=== PATIENT | female | born 1975 | race Two or more races ===

== ENCOUNTER 2020-03-15 12:51 | Emergency (ER) | payer MEDICAID, OTHER, SELFPAY ==
[~2020-03-15] VITALS: Ht 157.5 cm; Wt 95.0 kg
--- NOTE | 2020-03-15 13:10 | NUR ---
PT HAS ABD SURGICAL INCISION FROM 03/2019 THAT HAS TAKEN THE LAST YEAR TO HEAL. SMALL PART OPENED UP AGAIN TODAY WHILE PT WAS MOVING LUGGAGE AROUND. PT BLE BELOW KNEE AMPUTATION. PT WC BOUND. PT UNCONTROLLED DM2. PT CONNECTED TO MONITORING. CALL LIGHT IN REACH.
[2020-03-15 13:13] VITALS: BP 139/78
[2020-03-15] MEDS ORDERED: SODIUM CHLORIDE 0.9% 1,000ML IVBOLUS ONE (13:30)
--- NOTE | 2020-03-15 13:56 | NUR ---
LABS DRAWN FROM FIRST PIV PLACEMENT ATTEMPT. SECOND PIV PLACEMENT ATTEMPT UNSUCCESSFUL. PT STATES "I KNOW HOW TO BRING MY SUGARS DOWN AT HOME". PT REFUSED PIV AND PIV FLUIDS. PT STATES SHE WANTS TO GO HOME. PROVIDER NOTIFIED. PT SIGNED AMA PAPERWORK. PT WILL CALL BACK TO CHECK LAB RESULTS. WOUND CARE PROVIDED BY PRODUCT MARKETING CONSULTANT AND SUPPLIES PROVIDED. PT TRANSFERRED TO OWN W/O INCIDENCE.
[2020-03-15 14:05] LABS: BASOPHILS % (AUTO) 1 % (0-1); EOSINOPHILS % (AUTO) 1 % (1-7); LYMPHOCYTES % (AUTO) 17 % (22-44); MEAN CORPUSCULAR HEMOGLOBIN 24.7 pg (27.0-34.8); MEAN CORPUSCULAR HGB CONC 32.1 g/dL (32.4-35.8); MEAN PLATELET VOLUME 8.4 fL (7.4-10.4); MONOCYTES % (AUTO) 4 % (2-9); NEUTROPHILS % (AUTO) 77 % (42-75); PLATELET COUNT 323 x10^3/uL (130-400); RED BLOOD COUNT 5.21 x10^6/uL (3.82-5.3); RED CELL DISTRIBUTION WIDTH 15.3 % (9.6-15.2)
[2020-03-15 14:08] LABS: MD NO
[2020-03-15 14:17] LABS: ANION GAP 6 mmol/L (5-15); CALCIUM 8.8 mg/dL (8.5-10.1); CHLORIDE 99 mmol/L (98-107); CREATININE 1.05 mg/dL (0.55-1.02)
--- NOTE | 2020-03-15 14:34 | NUR ---
CARDIAC CARE UNIT NURSE: RECEIVED CALL FROM LAB, BLOOD GLUCOSE [phone]. ALICIA OSEI NOTIFIED. PT HAD LEFT AMA.
== END 2020-03-15 14:01 | disposition home or self-care (01) ==
LOC: ED 13:54
DX: T81.30XD Disruption of wound, unspecified, subsequent encounter (principal); E11.65 Type 2 diabetes mellitus with hyperglycemia; Z48.01 Encounter for change or removal of surgical wound dressing; Z90.710 Acquired absence of both cervix and uterus; Y83.8 Other surgical procedures as the cause of abnormal reaction of the patient, or of later complication, without mention of misadventure at the time of the procedure
CPT/HCPCS: 36415; 80048; 82040; 82962; 85025; 87070; 87147; 87205; 99283

== ENCOUNTER 2020-04-24 19:13 | Emergency (ER) | payer MEDICAID ==
[~2020-04-24] VITALS: Ht 129.5 cm; Wt 100.0 kg
--- NOTE | 2020-04-24 19:39 | NUR ---
Patient presents to ER c/o an open wound in the umbilical area. Patient had a hysterectomy last year in March. Patient states the incision never healed properly due to her DM. Now patient has approx 1 inch of the incision area which is open and oozing. Patient c/o pain with it. Patient is in NAD. Respirations even and unlabored.
--- NOTE | 2020-04-24 19:45 | NUR ---
Urine collected and sent to lab.
[2020-04-24 20:58] LABS: BASOPHILS % (AUTO) 2 % (0-1); EOSINOPHILS % (AUTO) 2 % (1-7); LYMPHOCYTES % (AUTO) 22 % (22-44); MEAN CORPUSCULAR HGB CONC 32.3 g/dL (32.4-35.8); MEAN PLATELET VOLUME 8.3 fL (7.4-10.4); MONOCYTES % (AUTO) 5 % (2-9); NEUTROPHILS % (AUTO) 70 % (42-75); PLATELET COUNT 308 x10^3/uL (130-400); RED BLOOD COUNT 5.22 x10^6/uL (3.82-5.3); RED CELL DISTRIBUTION WIDTH 15.8 % (9.6-15.2)
[2020-04-24 21:03] LABS: MD NO
[2020-04-24 21:03] LABS: MICROSCOPIC NOT IND
[2020-04-24 21:10] LABS: ALANINE AMINOTRANSFERASE 24 U/L (12-78); ALBUMIN 2.8 g/dL (3.4-5.0); ANION GAP 7 mmol/L (5-15); CALCIUM 8.4 mg/dL (8.5-10.1); CHLORIDE 94 mmol/L (98-107); CREATININE 1.03 mg/dL (0.55-1.02)
[2020-04-24 21:13] LABS: ALKALINE PHOSPHATASE 142 U/L (45-117); BILIRUBIN,TOTAL 0.2 mg/dL (0.2-1.0); TOTAL PROTEIN 7.4 g/dL (6.4-8.2)
[2020-04-24] MEDS ORDERED: INSULIN SINGLE DOSE, ER ONE (21:40)
[2020-04-24] MEDS ORDERED: FLUCONAZOLE 100 MG TABLET ONE ×2 (21:40→21:50)
[2020-04-24 21:53] VITALS: BP 147/74
--- NOTE | 2020-04-24 21:54 | NUR ---
Meds admin per apr. Awaiting patient's med list from home for d/c instructions.
[2020-04-24] MEDS ORDERED: INSULIN REGULAR 100 UNITS/ML, 3ML VIAL SQ-INSULIN ONE (22:00)
[2020-04-24] MEDS ORDERED: FLUCONAZOLE 100 MG TABLET PO ONE (22:00)
--- NOTE | 2020-04-24 22:52 | NUR ---
Discharge instructions given. All questions and concerns addressed. Patient in her electric wheelchair. Belongings with patient.
== END 2020-04-24 22:54 | disposition home or self-care (01) ==
LOC: ED 21:26
DX: T81.31XA Disruption of external operation (surgical) wound, not elsewhere classified, initial encounter (principal); E11.65 Type 2 diabetes mellitus with hyperglycemia; B37.3 Candidiasis of vulva and vagina; I11.9 Hypertensive heart disease without heart failure; E78.5 Hyperlipidemia, unspecified; Z90.710 Acquired absence of both cervix and uterus; Z89.612 Acquired absence of left leg above knee; Z89.611 Acquired absence of right leg above knee
CPT/HCPCS: 36415; 80053; 81003; 85025; 99283; J1815

== ENCOUNTER 2020-04-27 13:25 | Outpatient (CLI) | payer MEDICAID | END 2020-04-27 23:59 | disposition home or self-care (01) | LOC: WOUND 13:25 | PROVIDERS: ATTEND Internal Medicine | DX: T81.32XA Disruption of internal operation (surgical) wound, not elsewhere classified, initial encounter (principal); E11.65 Type 2 diabetes mellitus with hyperglycemia; C57.4 Malignant neoplasm of uterine adnexa, unspecified; E66.01 Morbid (severe) obesity due to excess calories; E44.0 Moderate protein-calorie malnutrition; F31.9 Bipolar disorder, unspecified; I11.9 Hypertensive heart disease without heart failure; F41.9 Anxiety disorder, unspecified; Z87.891 Personal history of nicotine dependence; Z89.612 Acquired absence of left leg above knee; Z89.611 Acquired absence of right leg above knee; Y83.8 Other surgical procedures as the cause of abnormal reaction of the patient, or of later complication, without mention of misadventure at the time of the procedure; Y92.238 Other place in hospital as the place of occurrence of the external cause | CPT/HCPCS: 97597; 99215 ==

== ENCOUNTER 2020-06-16 17:10 | Inpatient (IN) | payer MEDICAID ==
[~2020-06-16] VITALS: Ht 129.5 cm; Wt 98.3 kg
[2020-06-16] MEDS ORDERED: ASPIRIN 81 MG TABLET CHEW ONE (18:12)
--- NOTE | 2020-06-16 18:15 | NUR ---
THIS IS A 45 YO F W/ C/O SHARP UPPR BILAT CP STARTING AT 2200 LAST NIGHT. PT REPORTS RELAPSED LAST NIGHT BY SMOKING COCAINE, WAS 7 MONTHS CLEAN. PT REPORTS HX OF "HEART PROBLEMS" R/T PAST DRUG USE. PT MEDICATED PER EMAR. PT RESTING ON [email or web address] W/ CALL LIGHT IN REACH AND SIDE RAILS UPX2. RESP EVEN AND UNLABORED, KENAN.
[2020-06-16] MEDS ORDERED: SODIUM CHLORIDE FLUSH 10ML SYR IVF ONE (18:30)
[2020-06-16] MEDS ORDERED: ASPIRIN 81 MG TABLET CHEW PO ONE (18:30)
[2020-06-16 18:34] LABS: BASOPHILS % (AUTO) 1 % (0-1); EOSINOPHILS % (AUTO) 1 % (1-7); LYMPHOCYTES % (AUTO) 17 % (22-44); MD NO; MEAN CORPUSCULAR HEMOGLOBIN 24.3 pg (27.0-34.8); MEAN CORPUSCULAR HGB CONC 31.9 g/dL (32.4-35.8); MEAN PLATELET VOLUME 8.1 fL (7.4-10.4); MONOCYTES % (AUTO) 8 % (2-9); NEUTROPHILS % (AUTO) 74 % (42-75); PLATELET COUNT 372 x10^3/uL (130-400); RED BLOOD COUNT 5.82 x10^6/uL (3.82-5.3); RED CELL DISTRIBUTION WIDTH 16.1 % (9.6-15.2)
[2020-06-16 18:44] LABS: ALBUMIN 3.2 g/dL (3.4-5.0); ANION GAP 8 mmol/L (5-15); CALCIUM 9.2 mg/dL (8.5-10.1); CHLORIDE 94 mmol/L (98-107); CREATININE 1.29 mg/dL (0.55-1.02)
--- NOTE | 2020-06-16 18:51 | NUR ---
REPORT TO RANDOLPH RN, PT RESTING ON [employer] W/ CALL LIGHT IN REACH AND SIDE RAILS UPX2. RESP EVEN AND UNLABORED, GIOVANY.
[2020-06-16] MEDS ORDERED: INSULIN REGULAR 100 UNITS/ML, 3ML VIAL SQ-INSULIN ONE (19:00)
[2020-06-16] MEDS ORDERED: SODIUM CHLORIDE 0.9% 1,000ML IVBOLUS ONE (19:00)
[2020-06-16] MEDS ORDERED: HEPARIN 5,000 UNITS/ML, 1ML IV ONE (20:30)
[2020-06-16] MEDS ORDERED: ACETAMINOPHEN 325 MG TABLET PO PRN (20:30)
[2020-06-16] MEDS ORDERED: ENALAPRILAT 1.25 MG/ML, 2ML IVPush PRN (20:30)
[2020-06-16] MEDS ORDERED: ONDANSETRON 2MG/ML, 2ML IVPush PRN (20:30)
[2020-06-16] MEDS ORDERED: hydrALAzine 20 MG/ML, 1ML IVPush PRN (20:30)
[2020-06-16] MEDS ORDERED: ONDANSETRON ODT 4 MG PO PRN (20:30)
[2020-06-16] MEDS ORDERED: HEPARIN 5,000 UNITS/ML, 1ML ONE (20:33)
[2020-06-16] MEDS ORDERED: INSULIN LISPRO 100 UNITS/ML, PEN ONE (20:33)
[2020-06-16] MEDS ORDERED: HEPARIN 25,000 UNITS/250ML PMX 250 ML ONE (20:37)
[2020-06-16] MEDS: HEPARIN 25,000 UNITS/250ML PMX 250 ML IV PRN (20:51)
--- NOTE | 2020-06-16 20:57 | NUR ---
REPORT FROM RANDOLPH RN [employer] DIRECTOR HELPED VERIFY INSULIN/HEPARIN-BOTH ADMINISTERED PER EMAR
[2020-06-16] MEDS ORDERED: SODIUM CHLORIDE 0.9%, 500ML IVBOLUS ONE (21:00)
[2020-06-16] MEDS ORDERED: METOPROLOL TARTRATE 25 MG TAB PO ONE (21:00)
[2020-06-16] MEDS: ZOLPIDEM 5MG TABLET PO PRN (23:47)
[2020-06-16] MEDS: INSULIN LISPRO 100 UNITS/ML, PEN SQ-INSULIN SCH (23:47)
[2020-06-16] MEDS: morphine SULFATE 10 MG/ML, 1ML IVPush PRN (23:47)
[2020-06-16] MEDS: INSULIN GLARGINE 100 UNITS/ML, PEN SQ-INSULIN SCH (23:47)
[2020-06-17 00:51] VITALS: BP 105/68
[2020-06-17] MEDS ORDERED: SODIUM CHLORIDE 0.9% 1,000ML IVBOLUS ONE (01:30)
[2020-06-17 02:29] LABS: BASOPHILS % (AUTO) 1 % (0-1); EOSINOPHILS % (AUTO) 2 % (1-7); LYMPHOCYTES % (AUTO) 26 % (22-44); MEAN CORPUSCULAR HEMOGLOBIN 24.3 pg (27.0-34.8); MEAN CORPUSCULAR HGB CONC 32.6 g/dL (32.4-35.8); MEAN PLATELET VOLUME 7.8 fL (7.4-10.4); MONOCYTES % (AUTO) 6 % (2-9); NEUTROPHILS % (AUTO) 65 % (42-75); PLATELET COUNT 290 x10^3/uL (130-400); RED BLOOD COUNT 5.13 x10^6/uL (3.82-5.3); RED CELL DISTRIBUTION WIDTH 15.6 % (9.6-15.2)
[2020-06-17 02:30] LABS: MD NO
[2020-06-17 02:41] LABS: ANION GAP 8 mmol/L (5-15); CALCIUM 8.2 mg/dL (8.5-10.1); CHLORIDE 103 mmol/L (98-107); CHOLESTEROL, TOTAL 144 mg/dL (140-239); CREATININE 1.01 mg/dL (0.55-1.02); TRIGLYCERIDES 212 mg/dL (50-200); VLDL CHOLESTEROL 42 mg/dL (0-25)
[2020-06-17 02:44] LABS: CHOL/HDL RATIO 5.3; HDL CHOL % 19 % (28-40); HDL CHOLESTEROL (DIRECT) 27 mg/dL (40-60); LDL CHOLESTEROL,CALCULATED 75 mg/dL (54-169); LDL/HDL RATIO 2.8 (0.5-3.0)
[2020-06-17] MEDS: ASPIRIN 325 MG TABLET PO SCH (06:00)
[2020-06-17] MEDS: HEPARIN 5,000 UNITS/ML, 1ML IV PRN ×2 (06:11→11:28)
[2020-06-17 06:28] VITALS: BP 100/68
[2020-06-17] MEDS: POTASSIUM CHLORIDE 20 MEQ TAB.ER.PRT PO SCH ×2 (08:22→16:14)
[2020-06-17] MEDS: INSULIN LISPRO 100 UNITS/ML, PEN SQ-INSULIN SCH ×4 (08:23→20:26)
[2020-06-17] MEDS ORDERED: LISINOPRIL 5 MG TABLET PO SCH (09:00)
[2020-06-17 09:03] LABS: ESTIMATED AVERAGE GLUCOSE > 355 mg/dL (0-126)
[2020-06-17] MEDS: morphine SULFATE 10 MG/ML, 1ML IVPush PRN ×3 (09:27→18:03)
[2020-06-17 13:19] VITALS: BP 85/52
[2020-06-17] MEDS: HEPARIN 25,000 UNITS/250ML PMX 250 ML IV PRN (16:17)
[2020-06-17 20:05] VITALS: BP 112/69
[2020-06-17] MEDS: ATORVASTATIN 40 MG TABLET PO SCH (20:21)
[2020-06-17] MEDS: ZOLPIDEM 5MG TABLET PO PRN (20:21)
[2020-06-17] MEDS: INSULIN GLARGINE 100 UNITS/ML, PEN SQ-INSULIN SCH (20:26)
[2020-06-18] MEDS: HEPARIN 5,000 UNITS/ML, 1ML IV PRN ×2 (00:27→13:51)
[2020-06-18] MEDS: morphine SULFATE 10 MG/ML, 1ML IVPush PRN ×2 (00:28→06:31)
[2020-06-18 01:42] VITALS: BP 108/70
[2020-06-18] MEDS: ASPIRIN 325 MG TABLET PO SCH (05:38)
[2020-06-18 06:25] VITALS: BP 102/62
[2020-06-18 07:11] LABS: ANION GAP 6 mmol/L (5-15); CALCIUM 8.2 mg/dL (8.5-10.1); CHLORIDE 103 mmol/L (98-107); CREATININE 0.82 mg/dL (0.55-1.02)
[2020-06-18 08:50] LABS: TROPONIN I 0.449 ng/mL (0.000-0.045)
[2020-06-18] MEDS: INSULIN GLARGINE 100 UNITS/ML, PEN SQ-INSULIN SCH ×2 (09:11→22:04)
[2020-06-18] MEDS: INSULIN LISPRO 100 UNITS/ML, PEN SQ-INSULIN SCH ×4 (09:11→22:04)
[2020-06-18] MEDS: LISINOPRIL 5 MG TABLET PO SCH (09:12)
[2020-06-18] MEDS: SODIUM CHLORIDE 0.9% 1,000 ML IV SCH ×2 (11:44→22:00)
[2020-06-18 12:18] VITALS: BP 101/69
[2020-06-18] MEDS ORDERED: HYDROXYZINE PAMOATE 50MG CAP PO PRN (13:30)
[2020-06-18] MEDS ORDERED: LORazepam 1MG TABLET PO PRN (13:30)
[2020-06-18] MEDS ORDERED: DIPHENHYDRAMINE 50 MG/ML, 1ML ONE (14:22)
[2020-06-18] MEDS ORDERED: methylPREDNISolone SOD SUCC 125 MG/2 ML ONE (14:22)
[2020-06-18] MEDS ORDERED: FENTANYL PF 100 MCG/2ML ONE (15:09)
[2020-06-18] MEDS ORDERED: LIDOCAINE-MPF 1%, 5ML ONE (15:09)
[2020-06-18] MEDS ORDERED: HEPARIN 1,000 UNITS/ML, 10ML ONE (15:09)
[2020-06-18] MEDS ORDERED: TICAGRELOR 90 MG TABLET ONE (15:09)
[2020-06-18] MEDS ORDERED: BIVALIRUDIN 250 MG ONE (15:09)
[2020-06-18] MEDS ORDERED: MIDAZOLAM 1 MG/ML, 5ML ONE (15:09)
[2020-06-18] MEDS ORDERED: VERAPAMIL 2.5 MG/ML, 2ML ONE (15:09)
[2020-06-18 19:49] VITALS: BP 136/84
[2020-06-18] MEDS: ATORVASTATIN 40 MG TABLET PO SCH (22:04)
[2020-06-19 00:50] VITALS: BP 105/65
[2020-06-19] MEDS: ASPIRIN 325 MG TABLET PO SCH (05:28)
[2020-06-19 07:35] VITALS: BP 142/80
[2020-06-19] MEDS: SODIUM CHLORIDE 0.9% 1,000 ML IV SCH (08:00)
[2020-06-19] MEDS ORDERED: SERT50TA28 PO (08:11)
[2020-06-19] MEDS ORDERED: ARIP15TA6 PO (08:11)
[2020-06-19] MEDS ORDERED: DAPA10TA PO (08:11)
[2020-06-19] MEDS ORDERED: CLOP75TA PO (08:11)
[2020-06-19] MEDS ORDERED: APIX5TAB PO (08:11)
[2020-06-19] MEDS ORDERED: LISI5TAB7 PO (08:11)
[2020-06-19] MEDS ORDERED: DULA0.75 SQ (08:11)
[2020-06-19] MEDS ORDERED: MELA5TAB14 PO (08:11)
[2020-06-19] MEDS ORDERED: ATOR40TA78 PO (08:11)
[2020-06-19] MEDS ORDERED: HYDR-826 PO (08:11)
[2020-06-19] MEDS ORDERED: PRAZ2CAP2 PO (08:11)
[2020-06-19] MEDS ORDERED: PREG100C49 PO (08:11)
[2020-06-19] MEDS ORDERED: ARIP10TA33 PO (08:11)
[2020-06-19] MEDS ORDERED: ARIP10TA15 PO (08:11)
[2020-06-19] MEDS: LISINOPRIL 5 MG TABLET PO SCH (08:25)
[2020-06-19] MEDS: INSULIN LISPRO 100 UNITS/ML, PEN SQ-INSULIN SCH (08:28)
[2020-06-19] MEDS ORDERED: INSULIN GLARGINE 100 UNITS/ML, PEN SQ-INSULIN SCH (09:00)
[2020-06-19] MEDS ORDERED: ARIPIPRAZOLE 10 MG TABLET PO SCH (09:00)
== END 2020-06-19 10:12 | disposition home or self-care (01) | DRG 816 ==
LOC: ED 18:39 → SUATTDRO 20:23 → 5SO 21:54 → DCLOUNGE 06-19 10:02
PROVIDERS: ADMIT Hospitalist; ATTEND Family Medicine
PROC: 4A023N7 Measurement of Cardiac Sampling and Pressure, Left Heart, Percutaneous Approach (ICD-10-PCS; principal; 2020-06-18)
PROC: B2111ZZ Fluoroscopy of Multiple Coronary Arteries using Low Osmolar Contrast (ICD-10-PCS; 2020-06-18)
PROC: B2151ZZ Fluoroscopy of Left Heart using Low Osmolar Contrast (ICD-10-PCS; 2020-06-18)
DX: T40.5X1A Poisoning by cocaine, accidental (unintentional), initial encounter (principal); N17.0 Acute kidney failure with tubular necrosis; I21.A1 Myocardial infarction type 2; E11.65 Type 2 diabetes mellitus with hyperglycemia; Z68.43 Body mass index [BMI] 50.0-59.9, adult; E66.9 Obesity, unspecified; E78.5 Hyperlipidemia, unspecified; F12.90 Cannabis use, unspecified, uncomplicated; F14.10 Cocaine abuse, uncomplicated; F31.9 Bipolar disorder, unspecified; I10 Essential (primary) hypertension; R45.851 Suicidal ideations; Z79.4 Long term (current) use of insulin; Z87.891 Personal history of nicotine dependence; Z89.511 Acquired absence of right leg below knee; Z89.512 Acquired absence of left leg below knee; Z90.710 Acquired absence of both cervix and uterus; Z91.14 Patient's other noncompliance with medication regimen; Z91.5 Personal history of self-harm; Z99.3 Dependence on wheelchair; Y92.89 Other specified places as the place of occurrence of the external cause
CPT/HCPCS: 36415; 71045; 76937; 80048; 80061; 82040; 82947; 82962; 83036; 83735; 84484; 85025; 85520; 93005; 93458; 96374; 99156; 99157; 99285; C1769; C1894; C8929; G0378; J0583; J1644; J2250; J2405; J3010; Q0162; C1887; J1200; J1815; J2270; J2930; J7030; Q9967